=== PATIENT | female | born 1985 | race Hispanic/Latino ===

== ENCOUNTER 2017-06-14 14:48 | Emergency (ER) | payer OTHER ==
[2017-06-14 15:50] LABS: Absolute Lymphocytes (CBC) 2.1 K/uL (0.7-4.9); Absolute Monocytes 0.5 K/uL (0.1-1.3); Absolute Neutrophil 5.7 K/uL (1.8-8.0); Basophils % 0.3 % (0-1.3); Eosinophils % 0.9 % (0-4.4); Lymphocytes % 25.5 % (15.3-44.8); MCH 28.5 pg (27.0-35.0); MCV 82.5 fL (80-100); MPV 6.9 fL (7.6-11.3); Monocytes % 5.8 % (3.3-12.3); RBC Red Blood Cell Count 4.85 M/uL (3.86-4.86)
[2017-06-14 16:02] LABS: Bicarbonate 29 mEq/L (21-31); Glucose Level 111 mg/dL (65-120); Potassium 3.6 mEq/L (3.6-5.0); Sodium Level 140 mEq/L (135-145)
[2017-06-14 16:03] LABS: BUN Blood Urea Nitrogen 10 mg/dL (6-20)
[2017-06-14 16:06] LABS: Urine Blood NEGATIVE (NEG); Urine Glucose NEGATIVE (NEG); Urine Protein NEGATIVE (NEG); Urine Specific Gravity 1.015 (1.005-1.030); Urine pH 8.5 (5.0-7.0)
--- NOTE | 2017-06-14 16:15 | RAD REPORT ---
EXAM DESCRIPTION: CT - Head Brain Wo Cont - 06/14/2017 4:02 pm CLINICAL HISTORY: Dizziness COMPARISON: None. TECHNIQUE: Computed axial tomography of the head was obtained. IV contrast was not requested. All CT scans are performed using dose optimization technique as appropriate and may include automated exposure control or mA/KV adjustment according to patient size. FINDINGS: An intracranial bleed is not seen . The ventricles are normal in caliber. No extra-axial fluid collection is noted. The left mastoids are opacified. Fluid within the sinuses is not seen. IMPRESSION: No acute intracranial abnormality is seen. If patient's symptoms persist MRI of the bra in would be recommended. Opacification of the left mastoids may indicate mastoiditis and should be correlated clinically
[2017-06-14 16:17] LABS: Urine Bacteria <20 /HPF (<20); Urine RBC <5 /HPF (NONE SEEN)
[2017-06-14 16:18] LABS: Urine Amorphous Sediment 3+ /HPF (NONE SEEN); Urine Culture Reflex Order NOT NEEDED
[2017-06-14] MEDS ORDERED: ONDANSETRON 4 MG/2 ML VIAL ONE (16:24)
[2017-06-14] MEDS ORDERED: NA CHLORIDE 0.9% 1,000 ML ONE (16:24)
[2017-06-14] MEDS ORDERED: MECLIZINE HCL 12.5 MG TAB ONE (16:24)
--- NOTE | 2017-06-14 16:39 | EKG ---
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
--- NOTE | 2017-06-14 17:14 | EDPHYS ---
Physician Documentation [facility] Name: Monica Montoya Age: 31 yrs Sex: Female : 1985 Arrival Date: 06/14/2017 Time: 14:53 Bed 23 Private MD: ED Physician Chandana Levy HPI: 06/14 15:52 This 31 yrs old Female presents to ER via Ambulatory with complaints of snw Dizziness. 15:52 The patient presents with dizziness, vertigo. Onset: The symptoms/episode snw began/occurred suddenly, 1 hour(s) ago, and became persistent. Context: occurred at work, occurred while the patient was standing. Modifying factors: The symptoms are alleviated by nothing. Associated signs and symptoms: The patient has no apparent associated signs or symptoms. Severity of symptoms: At their worst the symptoms were moderate. The patient has not experienced similar symptoms in the past. The patient has not recently seen a physician. 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 - Social history:: Smoking status: Patient uses tobacco products, smokes one-half pack cigarettes per day. ROS: 15:47 Eyes: Negative for injury, pain, redness, and discharge, ENT: Negative for injury, snw pain, and discharge, Pt does state she had ear surgery '99. irritated ear x a few days ago Neck: Negative for injury, pain, and swelling, Cardiovascular: Negative for chest pain, palpitations, and edema, Respiratory: Negative for shortness of breath, cough, wheezing, and pleuritic chest pain, Abdomen/GI: Negative for abdominal pain, nausea, vomiting, diarrhea, and constipation, Back: Negative for injury and pain, : Negative for injury, bleeding, discharge, and swelling, MS/Extremity: Negative for injury and deformity, Skin: Negative for injury, rash, and discoloration. 15:47 Constitutional: Positive for dizziness. 15:47 Neuro: Positive for dizziness. Exam: 15:46 Constitutional: This is a well developed, well nourished patient who is awake, alert, snw and in no acute distress. Head/Face: Normocephalic, atraumatic. Eyes: Pupils equal round and reactive to light, extra-ocular motions intact. Lids and lashes normal. Conjunctiva and sclera are non-icteric and not injected. Cornea within normal limits. Periorbital areas with no swelling, redness, or edema. ENT: Nares patent. No nasal discharge, no septal abnormalities noted. Tympanic membranes are normal and external auditory canals are clear. Oropharynx with no redness, swelling, or masses, exudates, or evidence of obstruction, uvula midline. Mucous membranes moist. Neck: Trachea midline, no thyromegaly or masses palpated, and no cervical lymphadenopathy. Supple, full range of motion without nuchal rigidity, or vertebral point tenderness. No Meningismus. Chest/axilla: Normal chest wall appearance and motion. Nontender with no deformity. No lesions are appreciated. Cardiovascular: Regular rate and rhythm with a normal S1 and S2. No gallops, murmurs, or rubs. Normal PMI, no JVD. No pulse deficits. Respiratory: Lungs have equal breath sounds bilaterally, clear to auscultation and percussion. No rales, rhonchi or wheezes noted. No increased work of breathing, no retractions or nasal flaring. 15:46 Back: No spinal tenderness. No costovertebral tenderness. Full range of motion. Skin: Warm, dry with normal turgor. Normal color with no rashes, no lesions, and no evidence of cellulitis. MS/ Extremity: Pulses equal, no cyanosis. Neurovascular intact. Full, normal range of motion. Neuro: Awake and alert, GCS 15, oriented to person, place, time, and situation. Cranial nerves II-XII grossly intact. Motor strength 5/5 in all extremities. Sensory grossly intact. Cerebellar exam normal. Normal gait. 15:46 Abdomen/GI: Inspection: obese Bowel sounds: normal, Palpation: abdomen is soft and non-tender. Vital Signs: 14:58 BP 118 / 72; Pulse 75; Resp 18; Temp 97.8(TE); Pulse Ox 100% on R/A; Weight 68.04 kg; hj Height 4 ft. 8 in. (142.24 cm); Pain 0/10; 16:11 BP 113 / 74; Pulse 60; Resp 18; Pulse Ox 100% on R/A; kb1 17:15 BP 105 / 72 Supine; Pulse 62; kb1 17:20 BP 113 / 79 Sitting; Pulse 69; kb1 17:25 BP 116 / 82 Standing; Pulse 65; kb1 14:58 Body Mass Index 33.63 (68.04 kg, 142.24 cm) hj MDM: 15:13 Patient medically screened. snw 17:16 Data reviewed: vital signs, nurses notes. Data interpreted: Pulse oximetry: on room air snw is 100 %. Interpretation: normal. 17:16 Counseling: I had a detailed discussion with the patient and/or guardian regarding: the snw historical points, exam findings, and any diagnostic results supporting the discharge/admit diagnosis, lab results, radiology results, the need for outpatient follow up, to return to the emergency department if symptoms worsen or persist or if there are any questions or concerns that arise at home. Special discussion: Based on the history and exam findings, there is no indication for further emergent testing or inpatient evaluation. I discussed with the patient/guardian the need to see the ENT specialist for further evaluation of the symptoms. I discussed with the patient/guardian the need to see the primary care provider for further evaluation of the symptoms. 06/14 15:12 Order name: CBC with Diff; Complete Time: 16:26 snw 06/14 15:12 Order name: Chem 7; Complete Time: 16:26 snw 06/14 15:12 Order name: Urine Culture [facility] 06/14 15:12 Order name: Urine Microscopic Only; Complete Time: 16:26 snw 06/14 16:04 Order name: Urine Dipstick--Ancillary (enter results); Complete Time: 16:26 06/14 15:12 Order name: EKG; Complete Time: 15:13 snw 06/14 15:12 Order name: EKG - Nurse/Tech; Complete Time: 15:54 snw 06/14 15:31 Order name: CT Head Brain wo Cont; Complete Time: 16:26 snw 06/14 15:12 Order name: Urine Dipstick-Ancillary (obtain specimen); Complete Time: 15:55 snw 06/14 17:00 Order name: Orthostatics; Complete Time: 17:26 snw Administered Medications: 16:14 Drug: NS 0.9% 1000 ml Route: IV; Rate: 1 bolus; Site: right antecubital; kb1 17:52 Follow up: IV Status: Completed infusion kb1 16:14 Drug: Meclizine 50 mg Route: PO; kb1 17:26 Follow up: Response: Marked relief of symptoms kb1 16:14 Drug: Zofran 4 mg Route: IVP; Site: right antecubital; kb1 17:26 Follow up: Response: Nausea is decreased kb1 17:51 Drug: Rocephin - (cefTRIAXone) 1 grams Route: IVPB; Infused Over: 5 mins; Site: right kb1 antecubital; 17:52 Follow up: IV Status: Completed infusion kb1 Disposition: 06/15 10:24 Co-signature as Attending Physician, Chandana Levy MD I agree with the assessment and leo plan of care. Disposition: 06/14/17 17:14 Discharged to Home. Impression: Mastoiditis and related conditions, Dizziness and giddiness. - Condition is Stable. - Discharge Instructions: Dizziness, Mastoiditis, Pediatric, Rehydration, Adult. - Prescriptions for cefdinir 300 mg Oral capsule - take 2 capsule by ORAL route once daily for 14 days; 28 capsule. Antivert 25 mg Oral Tablet - take 1 tablet by ORAL route every 8 hours As needed; 20 tablet. - Work release form, Medication Reconciliation Form, Thank You Letter, Antibiotic Education, Prescription Opioid Use form. - Follow up: Private Physician; When: 2 - 3 days; Reason: Recheck today's complaints, Continuance of care, Re-evaluation by your physician. Follow up: Emergency Department; When: As needed; Reason: Worsening of condition. Follow up: Trudy Almaraz MD; When: 1 week; Reason: Recheck today's complaints. Signatures: Dispatcher [employer] Chandana Lin MD MD cha Therrien, Shelly, FUNERAL HOME ASSOCIATE-C FUNERAL HOME ASSOCIATE-Csnw Juan Clifford RN RN hj Brown, Kristina, RN RN kb1 Corrections: (The following items were deleted from the chart) 06/14 15:31 15:12 Urine Test ordered. snw snw
--- NOTE | 2017-06-14 17:14 | ER ---
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 Transition of care: patient was not received from another setting of care. Onset of symptoms was June 14, 2017. Care prior to arrival: None. 14:56 Method Of Arrival: Ambulatory 14:56 Acuity: RAFIQ 3 hj Triage Assessment: 14:58 General: Appears in no apparent distress. uncomfortable, Behavior is calm, cooperative, hj appropriate for age. Pain: Denies pain. 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 - Social history:: Smoking status: Patient uses tobacco products, smokes one-half pack cigarettes per day. Screenin:11 Abuse screen: Denies threats or abuse. Nutritional screening: No deficits noted. kb1 Tuberculosis screening: No symptoms or risk factors identified. Fall Risk Secondary diagnosis (15 points) dizziness. Assessment: 15:25 General: Appears in no apparent distress. Behavior is calm, cooperative. Pain: Denies kb1 pain. Neuro: Level of Consciousness is awake, alert, obeys commands, Oriented to person, place, time, situation, Reports dizziness, when walking and getting up. Cardiovascular: Patient's skin is warm and dry. Respiratory: Airway is patent. GI: Reports nausea. : No signs and/or symptoms were reported regarding the genitourinary system. 16:11 Reassessment: Patient appears in no apparent distress at this time. Patient and/or kb1 family updated on plan of care and expected duration. Pain level reassessed. Patient is alert, oriented x 3, equal unlabored respirations, skin warm/dry/pink. 17:26 Reassessment: Patient appears in no apparent distress at this time. Patient and/or kb1 family updated on plan of care and expected duration. Pain level reassessed. Patient is alert, oriented x 3, equal unlabored respirations, skin warm/dry/pink. Patient states feeling better. Vital Signs: 14:58 BP 118 / 72; Pulse 75; Resp 18; Temp 97.8(TE); Pulse Ox 100% on R/A; Weight 68.04 kg; hj Height 4 ft. 8 in. (142.24 cm); Pain 0/10; 16:11 BP 113 / 74; Pulse 60; Resp 18; Pulse Ox 100% on R/A; kb1 17:15 BP 105 / 72 Supine; Pulse 62; kb1 17:20 BP 113 / 79 Sitting; Pulse 69; kb1 17:25 BP 116 / 82 Standing; Pulse 65; kb1 14:58 Body Mass Index 33.63 (68.04 kg, 142.24 cm) hj ED Course: 14:53 Patient arrived in ED. mr 14:57 Triage completed. hj 14:58 Arm band placed on left wrist. hj 15:00 Iris Villarreal, OPHELIA is Primary Nurse. kb1 15:09 Suyapa Young FNP-C is PHCP. snw 15:09 Chandana Levy MD is Attending Physician. snw 15:21 EKG done, by laboratory technician. reviewed by Suyapa MCDANIELS. tc 15:40 Patient has correct armband on for positive identification. Placed in gown. Bed in low kb1 position. Call light in reach. Side rails up X 1. 15:40 teaching assistant on. Pulse ox on. NIBP on. Warm blanket given. kb1 15:40 Inserted saline lock: 20 gauge in right antecubital area, using aseptic technique. kb1 Blood collected. 16:02 CT Head Brain wo Cont In Process Unspecified. EDMS 16:13 No provider procedures requiring assistance completed. kb1 17:13 Trudy Almaraz MD is Referral Physician. snw 18:01 IV discontinued, intact, bleeding controlled, No redness/swelling at site. Pressure kb1 dressing applied. Administered Medications: 16:14 Drug: NS 0.9% 1000 ml Route: IV; Rate: 1 bolus; Site: right antecubital; kb1 17:52 Follow up: IV Status: Completed infusion kb1 16:14 Drug: Meclizine 50 mg Route: PO; kb1 17:26 Follow up: Response: Marked relief of symptoms kb1 16:14 Drug: Zofran 4 mg Route: IVP; Site: right antecubital; kb1 17:26 Follow up: Response: Nausea is decreased kb1 17:51 Drug: Rocephin - (cefTRIAXone) 1 grams Route: IVPB; Infused Over: 5 mins; Site: right kb1 antecubital; 17:52 Follow up: IV Status: Completed infusion kb1 Outcome: 17:14 Discharge ordered by MD. cortes 18:00 Discharged to home ambulatory. kb1 18:00 Condition: stable 18:00 Discharge instructions given to patient, Instructed on discharge instructions, follow up and referral plans. medication usage, Demonstrated understanding of instructions, follow-up care, medications, Prescriptions given X 2. 18:01 Patient left the ED. kb1 Signatures: Dispatcher [employer] EDMS Suyapa Young, RIC-C MOLDING SUPERVISOR-Yasmin BrannonisSaige, marketing designer EKG Ttc Juan Clifford RN RN hj Brown, Kristina, RN RN kb1
[2017-06-14] MEDS ORDERED: CEFTRIAXONE/SWI 1gm 1 GM/10 ML SYR ONE (17:57)
== END 2017-06-14 18:01 | disposition home or self-care (01) ==
LOC: ER 14:48
DX: H70.899 Other mastoiditis and related conditions, unspecified ear (principal); F17.210 Nicotine dependence, cigarettes, uncomplicated
CPT/HCPCS: 36415; 70450; 80048; 81003; 81015; 85025; 87086; 87088; 93005; 96361; 96374; 96375; 99285; J0696; J2405; J7030

== ENCOUNTER → 2019-01-22 | Day surgery (SDC) | payer OTHER ==
--- NOTE | 2019-01-22 13:18 | RAD REPORT ---
EXAM DESCRIPTION: US - Follow Up Breast Axilla Comp - 01/22/2019 10:07 am CLINICAL HISTORY: Right medial breast mass COMPARISON: Mammogram December 24, 2018, outside ultrasound report December 30, 2018 FINDINGS: The patient presents for ultrasound-guided breast biopsy based on findings from an outside ultrasound from [facility] imaging dated December 30, 2018. The disc from that examination would not o pen. Images could not be reviewed. Report detailed a 7 mm moderately suspicious mass 2 o'clock right breast 4 cm from the nipple. Review of the mammogram showed an area of concern in the medial right breast. Based on 3D projection this mass is in the lower inner quadrant of the right breast. This is discordant with the ultrasound study. Technologist imaging and physician performed imaging failed to identify any abnormality in the 2 o'cl ock region of the right breast. No abnormality in the upper inner quadrant could be demonstrated. A small curvilinear hypoechoic focus in the superficial right breast 5 o'clock position was identifie d. Doppler evaluation shows no blood flow within or adjacent to this structure. This has a curvilinea r configuration and may represent a tortuous duct. This finding appears to be more lateral and superf icial than suspected based on the mammogram finding. The December 24 mammogram finding was only clearl y seen on the CC projection. Today's ultrasound finding is not a definitive correlate to the December 24 mammogram study and is not felt to be of sufficient concern to warrant a biopsy that may distort the medial right breast tissue . The patient has discordant imaging findings. The mammogram and ultrasound findings do not appear to match and therefore biopsy was not performed. The mammogram finding is still concerning enough to warrant ongoing evaluation. Recommendation would be to undergo contrast-enhanced breast MRI imaging. If the insurance company will not authorize this examination, recommendation for the patient would be to undergo diagnostic right mammography and sono graphy June 2019 to re-evaluate these findings for stability. The findings were discussed in detail with the patient and she was agreeable to this follow-up plan. The patient was encouraged to discuss these findings and options with the referring physician. IMPRESSION: 1. Pre biopsy imaging could not identify an abnormality in the upper inner quadrant righ t breast as a correlate to the outside ultrasound study. 2. The small lower inner quadrant sonographic finding on today's study is not a definitive correlate to the December 24 mammogram abnormality. 3. Given the discordant findings, no biopsy was performed at this time. Recommendation for the patien t would be to undergo contrast-enhanced breast MRI imaging to determine if the small mammogram findin g enhances. If insurance will not authorize or pay for the breast MRI study, diagnostic right mammogr aphy and sonography June 2019 would be the recommendation. BI-RAD: Category 3 probably benign six-month follow-up ResultCode: [id number]
== END ==
LOC: DS 08:29
DX: R92.8 Other abnormal and inconclusive findings on diagnostic imaging of breast (principal); Z53.9 Procedure and treatment not carried out, unspecified reason
CPT/HCPCS: 76641